=== PATIENT | female | born 1990 | race Caucasian/White ===

== ENCOUNTER 2023-03-14 13:45 | Emergency (ER) | payer OTHER ==
[2023-03-14 13:52] VITALS: RESP 18; TEMP 98.1; BMI 26.6
[2023-03-14 15:19] VITALS: BP 117/73; PULSE 84
== END 2023-03-14 15:20 | disposition home or self-care (01) ==
LOC: JERFT 13:45
DX: S92.525A Nondisplaced fracture of middle phalanx of left lesser toe(s), initial encounter for closed fracture (principal); M79.675 Pain in left toe(s); W22.03XA Walked into furniture, initial encounter
CPT/HCPCS: 73630-TC-LT; 99283-25